=== PATIENT | male | born 1950 | race Caucasian/White ===

== ENCOUNTER → 2016-08-10 | Outpatient (CLI) | payer BC ==
[~2016-08-10] MED LIST: AMLODIPINE BESY10 MG PO; BENAZEPRIL PO; FUROSEMIDE40 MG PO; HCTZ PO; LOPID600 MG PO; LOTREL 5/20 MG1 CAP PO; METFORMIN PO; PRILOSEC PO; PROTONIX PO
--- NOTE | ~2016-08-10 | CR7 ---
[facility] A Service of [facility] & [facility] RADIOLOGY TEXT RESULTS PATIENT: MADHAVI EVANS LOCATION: [facility] : 50 UNIT #: [id number] AGE: [address]: Froy Fairbanks MD SEX: M ORDER DR: [id number] [facility] [address] [place], [place] [address] [id number] O MR#: [id number] Acc #: [id number] NAME: MADHAVI EVANS : 1950 SEX: M STUDY DATE/TIME: 08/10/2016 13:37 UNIT: US ROOM: STUDY DESCRIPTION: CR Abdomen Single AP View Attending Physician: Froy Fairbanks M.D. Referring Physician: Froy Fairbanks M.D. Ordering Physician: Froy Fairbanks M.D. Primary Care Physician: Alisson Lai A.P.R.N. MEDICAL IMAGING REPORT This report is preliminary unless electronic signature is present EXAM Abdomen 2 views, 08/10/2016 HISTORY Followup kidney stones right side eight weeks ago. FINDINGS Two views of the abdomen demonstrate a normal bowel gas pattern with no evidence of bowel obstruction or free air. Gas and fecal matter in the colon partially obscure the renal shadows bilaterally. There are no abnormal abdominal calcifications. There is degenerative change with osteophyte formation in the lumbar spine. Dictated by... Ron Nunez M.D. THIS IS AN ELECTRONICALLY VERIFIED REPORT Ron Nunez M.D. at 08/12/2016 6:26 AM Lela TD: 08/11/2016 14:20 JOB #: [id number] MEDICAL IMAGING REPORT Page 1 of 1 COPY
--- NOTE | ~2016-08-10 | US77 ---
[facility] A Service of [facility] RADIOLOGY TEXT RESULTS PATIENT: MADHAVI EVANS LOCATION: [facility] : 50 UNIT #: [id number] AGE: [address]: Froy Fairbanks MD SEX: M ORDER DR: [id number] [place] [id number] [facility]. [place], [place] [address] [id number] O MR#: [id number] Acc #: [id number] NAME: MADHAVI EVANS : 1950 SEX: M STUDY DATE/TIME: 08/10/2016 14:05 UNIT: [facility] ROOM: STUDY DESCRIPTION: US Kidney Bilateral Complete Attending Physician: Froy Fairbanks M.D. Referring Physician: Froy Fairbanks M.D. Ordering Physician: Froy Fairbanks M.D. Primary Care Physician: Alisson Lai A.P.R.N. MEDICAL IMAGING REPORT This report is preliminary unless electronic signature is present EXAM Renal ultrasound INDICATION Right flank pain. The patient reports a 5 mm right renal stone 2 weeks ago. He has not had lithotripsy. He thinks he may have passed the stone about a week ago. TECHNIQUE Campbell-scale and color Doppler sonographic images were obtained through the kidneys and bladder. FINDINGS No hydronephrosis is identified on either side. There is a hyperechoic structure seen within the midportion of the right kidney which really does not show any significant posterior shadowing but certainly given history, this could reflect this patient's known stone. No definite additional stones are seen. Within the left kidney the patient has a cyst arising from the superior pole. No definite solid renal masses are seen. The patient's urinary bladder appears normal IMPRESSION 1. Hyperechoic structures are seen within the mid right kidney. It really does not show any significant shadowing but still could reflect a stone given history. No associated hydronephrosis is seen. 2. Left renal cyst. Dictated by... Carina rBooks M.D. [facility] A Service of [facility] RADIOLOGY TEXT RESULTS PATIENT: MADHAVI EVANS LOCATION: [facility] : 50 UNIT #: [id number] AGE: [address]: Froy Fairbanks MD SEX: M ORDER DR: THIS IS AN ELECTRONICALLY VERIFIED REPORT Carina Brooks M.D. at 08/13/2016 3:56 PM AFF/roseanna TD: 08/10/2016 23:22 JOB #: [id number] MEDICAL IMAGING REPORT Page 1 of 1 COPY
== END | disposition home or self-care (01) ==
LOC: CGUS 13:07
DX: N20.0 Calculus of kidney (principal); N28.1 Cyst of kidney, acquired
CPT/HCPCS: 74000; 76770